=== PATIENT | male | born 1985 | race Caucasian/White ===

== ENCOUNTER 2017-05-01 11:47 | Emergency (ER) | payer MEDICAID, OTHER ==
[2017-05-01 12:15] VITALS: BMI 21.9
[2017-05-01] MEDS ORDERED: Iohexol 240 (50 ml) PO ONE (12:48)
[2017-05-01] MEDS ORDERED: Iohexol 240 (50 ml) ONE (13:03)
[2017-05-01] MEDS ORDERED: Morphine 4 MG/ML VIAL IV STA (13:17)
[2017-05-01 13:23] LABS: HEMOGLOBIN 15.2 g/dL (12.0-18.0); MEAN CELL VOLUME 91.5 fl (80.0-94.0); MEAN CORPUSCULAR HEMOGLOBIN 32.3 pg (27.0-31.0); MEAN CORPUSCULAR HGB CONC 35.4 g/dL (33.0-37.0); RBC 4.71 Mil/uL (4.40-5.90); RED CELL DISTRIBUTION WIDTH 12.2 % (11.5-14.5); WHITE BLOOD COUNT 7.1 K/uL (4.8-10.8)
[2017-05-01 14:15] LABS: SQUAMOUS EPITHIAL < 1 /hpf (0-5); URINE BACTERIA RARE (<OCC); URINE BILIRUBIN NEGATIVE (NEGATIVE); URINE BLOOD SMALL (NEGATIVE); URINE CLARITY CLEAR (Clear); URINE COLOR YELLOW (YELLOW); URINE GLUCOSE (UA) NEG (Normal); URINE LEUKOCYTE ESTERASE NEG Leu/uL (Negative); URINE NITRATE NEGATIVE (NEGATIVE); URINE PROTEIN NEGATIVE (NEGATIVE); URINE UROBILINOGEN 0.2-1.0 mg/dL (0.2-1.0)
[2017-05-01 14:18] LABS: ALB/GLOB RATIO 1.5 (1.0-2.1); ALBUMIN 4.2 g/dL (3.5-5.0); ALT/SGPT 36 U/L (21-72); AST/SGOT 23 U/L (17-59); BLOOD UREA NITROGEN 13 mg/dl (9-20); CALCIUM 8.9 mg/dL (8.4-10.2); GFR AFRICAN-AMERICAN > 60; GFR NON-AFRICAN AMERICAN > 60
--- NOTE | 2017-05-01 14:27 | ED PDOC ---
HPI: Abdomen Time Seen by Provider: 05/01/17 12:28 Chief Complaint (Nursing): Abdominal Pain Chief Complaint (Provider): Left sided abdominal pain with N/V/D for 2 week History Per: Patient History/Exam Limitations: no limitations Onset/Duration Of Symptoms: Days Outside of [place] travel?: No Quality Of Discomfort: Sharp Associated Symptoms: Nausea, Vomiting, Diarrhea, Loss Of Appetite. denies: Fever, Chills, Urinary Symptoms Exacerbating Factors: None Alleviating Factors: None Additional Complaint(s): PT states every time he eats he has severe left sided abdominal pain, nausea, vomiting and diarrhea. Pt states he has not been seen by PMD for this issue. Denies similar in the past. Past Medical History Reviewed: Historical Data, Nursing Documentation, Vital Signs Vital Signs: Last Vital Signs Temp 98 F 05/01/17 17:23 Pulse 82 05/01/17 17:23 Resp 18 05/01/17 17:23 BP 110/68 05/01/17 17:23 Pulse Ox 99 05/01/17 17:23 - Medical History PMH: Asthma, Back Problems, Bronchitis, HTN - Surgical History Surgical History: Appendectomy - Family History Family History: States: Unknown Family Hx - Living Arrangements Living Arrangements: With Family - Social History Current smoker - smoking cessation education provided: No Alcohol: Occasional Drugs: Denies - Immunization History Hx Tetanus Toxoid Vaccination: Yes Hx Influenza Vaccination: No Hx Pneumococcal Vaccination: No - Home Medications Home Medications: Ambulatory Orders Medication Instructions Recorded Ibuprofen [Motrin] 600 mg PO TID #15 tab 12/14/15 oxyCODONE/Acetaminophen [Percocet 2 tab PO TID #20 tab 12/14/15 5/325 mg Tab] Ciprofloxacin [Cipro] 500 mg PO BID #20 tab 05/01/17 metroNIDAZOLE [Flagyl] 500 mg PO TID #30 tab 05/01/17 - Allergies Allergies/Adverse Reactions: Allergies Allergy/AdvReac Type Severity Reaction Status Date / Time Penicillins Allergy Verified 01/06/17 11:55 Review of Systems ROS Statement: Except As Marked, All Systems Reviewed And Found Negative Gastrointestinal: Positive for: Nausea, Vomiting, Abdominal Pain, Diarrhea Physical Exam - Reviewed Nursing Documentation Reviewed: Yes Vital Signs Reviewed: Yes - Physical Exam Appears: Positive for: Well, Non-toxic, No Acute Distress Head Exam: Positive for: ATRAUMATIC, NORMAL INSPECTION, NORMOCEPHALIC Skin: Positive for: Normal Color, Warm, DRY Eye Exam: Positive for: Normal appearance ENT: Positive for: Normal ENT Inspection Neck: Positive for: Normal, Painless ROM Cardiovascular/Chest: Positive for: Regular Rate, Rhythm Respiratory: Positive for: CNT, Normal Breath Sounds Gastrointestinal/Abdominal: Positive for: Bowel Sounds, Soft, Tenderness (Left sided abdominal pain ). Negative for: Normal Exam Back: Positive for: Normal Inspection Extremity: Positive for: Normal ROM. Negative for: Tenderness Neurologic/Psych: Positive for: Alert, Oriented - Laboratory Results Result Diagrams: 05/01/17 13:15 05/01/17 13:15 - ECG Pulse Ox Interpretation: Normal Medical Decision Making Medical Decision Making: Labs normal CT - Enteritis Discussed f/u with gI fo further evaluation. Disposition - Clinical Impression Clinical Impression: Enteritis - Patient ED Disposition Is Patient to be Admitted: No Counseled Patient/Family Regarding: Diagnosis, Need For Followup - Disposition Disposition: Routine/Home Disposition Time: 17:23 Condition: STABLE Prescriptions: Ciprofloxacin [Cipro] 500 mg PO BID #20 tab metroNIDAZOLE [Flagyl] 500 mg PO TID #30 tab Instructions: Enteritis (ED)
[2017-05-01 14:30] LABS: BARBITURATES, UR NEGATIVE (NEGATIVE); BENZODIAZEPINES, UR NEGATIVE (NEGATIVE); OPIATES, UR NEGATIVE (NEGATIVE); PHENCYCLIDINE, UR NEGATIVE (NEGATIVE)
[2017-05-01] MEDS ORDERED: Iohexol 300 100 ML IJ ONE (15:27)
[2017-05-01] MEDS ORDERED: Sodium Chloride 0.9% 50 ML IV ONE (15:28)
--- NOTE | 2017-05-01 16:20 | CT ---
PROCEDURE: CT Abdomen and Pelvis with contrast HISTORY: Left sided pain, N/V x 2 weeks COMPARISON: None. TECHNIQUE: Contrast dose: 95 cc of Omnipaque 300. Axial and reformatted coronal sagittal CT images of the abdomen and pelvis were obtained after IV and oral contrast administration. Radiation dose: Total exam DLP = 403.9 mGy-cm. This CT exam was performed using one or more of the following dose reduction techniques: Automated exposure control, adjustment of the mA and/or kV according to patient size, and/or use of iterative reconstruction technique. FINDINGS: LOWER THORAX: No evidence of acute pathology. LIVER: Unremarkable. No gross lesion or ductal dilatation. GALLBLADDER AND BILE DUCTS: Unremarkable. PANCREAS: Unremarkable. No gross lesion or ductal dilatation. SPLEEN: Unremarkable. ADRENALS: Unremarkable. No mass. KIDNEYS AND URETERS: Unremarkable. No hydronephrosis. No solid mass. VASCULATURE: Unremarkable. No aortic aneurysm. BOWEL: The stomach is not distended. However there is suspicious for diffuse gastric wall thickening. There are xwrzbf-dn-daucollntg dilated small bowel loops at the mid and upper abdomen demonstrate zdom-el-rhkwjkfj wall thickening. APPENDIX: Normal appendix. PERITONEUM: Unremarkable. No free fluid. No free air. LYMPH NODES: Unremarkable. No enlarged lymph nodes. BLADDER: Unremarkable. REPRODUCTIVE: Unremarkable. BONES: No acute fracture. OTHER FINDINGS: None. IMPRESSION: Gaqrif-sd-rlwlqxfbeb dilated small bowel loops demonstrate tger-uw-lgdoyemo wall thickening suspicious for enteritis. Otherwise no evidence of acute pathology in the abdomen and pelvis.
[2017-05-01 17:23] VITALS: RESP 18; O2SAT 99
[2017-05-01 17:24] VITALS: BP 110/68; PULSE 82; TEMP 98
== END 2017-05-01 17:24 | disposition home or self-care (01) ==
LOC: H.ER 11:47
DX: K52.9 Noninfective gastroenteritis and colitis, unspecified (principal)